=== PATIENT | female | born 1990 | race Caucasian/White ===

== ENCOUNTER → 2016-11-11 | Emergency (ER) | payer BC, OTHER ==
[~2016-11-11] VITALS: Ht 160 cm; Wt 55.0 kg
[~2016-11-11] MED LIST: NAPR-260 PO
[2016-11-11 21:47] VITALS: Ht 160 cm; Wt 55.0 kg
--- NOTE | 2016-11-12 00:45 | RADRPT ---
PROCEDURE: Ultrasound examination of the right lower extremity with Doppler. CLINICAL INDICATION: Right leg pain and swelling. TECHNIQUE: Multiple sonographic images of the right lower extremity were performed with zhou scal e and color Doppler. COMPARISON: None. FINDINGS: The right common femoral, superficial femoral and popliteal veins demonstrate normal color flow, wav eforms, compression and response augmentation. There is no evidence of deep venous thrombosis. IMPRESSION: No evidence of deep venous thrombosis within the right lower extremity. .Hang Fenton MD, Date Time Electronically viewed and signed by .Hang Fenton MD, on 11/12/2016 00:44 .T/
--- NOTE | 2016-11-12 00:56 | RADRPT ---
PROCEDURE: Right foot. CLINICAL INDICATION: Pain. TECHNIQUE: Three views including AP, lateral and oblique views of the right foot were obtained. The images were reviewed on a PACS workstation. COMPARISON: None. FINDINGS: There is no fracture, dislocation or bone destruction. The joint spaces are within normal limits. Bone mineralization is within normal limits. There is no radiopaque foreign body or abnormal calcif ication. IMPRESSION: No evidence of fracture. .Hang Fenton MD, Date Time Electronically viewed and signed by .Hang Fenton MD, MD on 11/12/2016 00:56 .T/
[2016-11-12 01:28] VITALS: BP 112/72; PULSE 97; RESP 18; TEMP 98.8
--- NOTE | 2016-11-12 06:30 | ERD ---
DATE OF SERVICE: HISTORY OF PRESENT ILLNESS: The patient is a 26-year-old female complaining of swelling to her righ t foot. She denies any traumatic injury. She states it hurts on the bottom of her foot, she states that she is also complaining of some calf swelling on the right side. She has no history of DVTs i n the past. Denies any numbness or tingling. Has not taken any medications for her symptoms. PAST MEDICAL HISTORY: Denies any other medical problems. ALLERGIES: DENIES ALLERGIES TO MEDICATIONS. PAST SURGICAL HISTORY: Denies. SOCIAL HISTORY: Denies. REVIEW OF SYSTEMS: A 12-point review of systems was done. Refer to HPI for positives, all other sy stems negative. PHYSICAL EXAMINATION: VITAL SIGNS: Temperature is 98.5, pulse is 110, blood pressure is 118/75, respiratory rate 20, O2 s aturation 100% on room air. Pain intensity is 6/10. GENERAL: The patient is well-appearing, well-nourished, no acute distress. HEART: Regular rate and rhythm. No murmurs, clicks, rubs or gallops. No S3 or S4. CHEST: Clear to auscultation bilaterally. There are no rales, wheezes or rhonchi. HEENT: Atraumatic. Conjunctivae are pink. Pupils equal, round, and reactive to light. There is no s cleral icterus. Tympanic membranes clear bilaterally. Oropharynx clear. No nystagmus or photophobia . SKIN: There is no apparent rash or petechia. The skin is warm and dry. EXTREMITIES: The patient has mild swelling noted to the distal right foot. There is no surrounding erythema, no fluctuance. Pulses intact. Compartment is soft. The patient has full range of motio n of the digits and has strength 5/5 with flexion and extension of the right foot. The patient has questionable calf tenderness with palpation. EMERGENCY ROOM COURSE: The patient had a right lower leg extremity venous ultrasound which showed n o evidence of DVT within the right lower extremity. The patient also had an x-ray of the right foot which showed no evidence of fracture. The patient had an Mazin wrap applied the ER. DIAGNOSIS: Right foot swelling, unspecified. MEDICAL DECISION MAKING: The patient is neurovascularly intact. There are no signs of erythema or infection. I have low suspicion for acute fracture or dislocation. DISCHARGE: The patient is discharged stable. The patient is given a prescription for ibuprofen and told to follow up with primary care within 1 to 2 days for reevaluation. The patient was told if s ymptoms progress or worsen, to return to the ER. The patient was given strict ER precautions. Dictated By: VIVI VERA for VINCE WOODWARD/YO Conf#: [id number] DID#: [id number]
== END | disposition home or self-care (01) ==
LOC: FTE 20:51
DX: M79.89 Other specified soft tissue disorders (principal)
CPT/HCPCS: 73630; 93971